=== PATIENT | female | born 1975 | race African-American/Black ===

== ENCOUNTER 2016-09-21 06:33 | Emergency (ER) | payer OTHER ==
[~2016-09-21] VITALS: Wt 72.4 kg
[~2016-09-21 06:33] MED LIST: FLUO60SO7 TOP; KENC1 TOP; LORA-441 PO
[2016-09-21] MEDS ORDERED: ALBU8.5H3 INH (08:03)
[2016-09-21] MEDS ORDERED: BENZ100C70 PO (08:03)
[2016-09-21] MEDS ORDERED: AZIT250T94 PO (08:03)
[2016-09-21] MEDS ORDERED: ACET500C5 PO (08:03)
--- NOTE | 2016-09-21 08:38 | ERD ---
ER Documentation Chief Complaint Date/Time DATE: 09/21/16 TIME: 08:35 Chief Complaint COUGH CONGESTION WITH SORE THRAOT FOR THE PAST FEW DAYS HPI 40-year-old female with no significant past medical history presents the ED complaining of cough, congestion, sore throat that started 3 days ago. States that she tried [id number] NyQuil which did not alleviate her symptoms. Denies any fever, chest pain, shortness of breath, abdominal pain, nausea, vomiting, diarrhea. Patient states that her last menses was 1 week ago. Denies any sick contacts. ROS All systems reviewed and are negative except as per history of present illness. Medications Home Meds Active Scripts Acetaminophen* (Tylophen*) 500 Mg Capsule, 1 CAP PO Q6H Y for PAIN AND OR ELEVATED TEMP, #20 CAP Prov:BILLIE GRAYSON PA-C 09/21/16 Albuterol Sulfate* (Proair HFA*) 8.5 Gm Hfa.aer.ad, 2 PUFF INH Q4, #1 INHALER Prov:BILLIE GRAYSON PA-C 09/21/16 Benzonatate* (Tessalon Perle*) 100 Mg Capsule, 100 MG PO Q8H Y for COUGH, #20 CAP Prov:BILLIE GRAYSON PA-C 09/21/16 Azithromycin* (Zithromax*) 250 Mg Tablet, 250 MG PO .ZPACK DIRECTED, #6 TAB TAKE 500 MG (2 TABS) THE FIRST DAY THEN 250 MG (1 TAB) DAYS 2-5 Prov:BILLIE GRAYSON PA-C 09/21/16 Triamcinolone Acetonide (Triamcinolone Acetonide) 0.1% - 15 Gm Cream.gm., 1 APPLIC TOP BID, #1 TUB Prov:ROSALBA RODRIGUEZ MD 01/17/16 Fluocinonide* (Fluocinonide* Soln) 0.05% - 60 Ml Solution, 1 APPLIC TOP DAILY for 10 Days, EA 1 Refill Prov:ROSALBA RODRIGUEZ MD 01/17/16 Lorazepam* (Ativan*) 0.5 Mg Tablet, 0.5 MG PO Q8H Y for ANXIETY, #10 TAB Prov:JORGE WATSON PA-C 03/29/15 Lorazepam* (Ativan*) 0.5 Mg Tablet, 0.5 MG PO Q8, #10 Prov:NINA BHAKTAA 12/23/14 Allergies Allergies: Coded Allergies: No Known Allergy (Unverified , 01/17/16) PMhx/Soc History of Surgery: No Anesthesia Reaction: No Hx Neurological Disorder: No Hx Respiratory Disorders: No Hx Cardiac Disorders: No Hx Psychiatric Problems: Yes (anxiety) Hx Miscellaneous Medical Probl: Yes (ECZEMA ) Hx Alcohol Use: No Hx Substance Use: No Hx Tobacco Use: No Smoking Status: Never smoker Physical Exam Vitals Vital Signs Date Time Temp Pulse Resp B/P Pulse Ox O2 Delivery O2 Flow Rate FiO2 09/21/16 06:46 97.8 80 21 115/69 98 Physical Exam Const: [id number], well-nourished. In no acute distress. Head: Atraumatic, normocephalic Eyes: Normal Conjunctiva without injection. No purulent discharge. PERRL. EOMI ENT: Normal external ear. Ear canal without erythema. Tympanic membrane pearly noriega without effusion or bulging. Nasal canal clear with normal turbinates. Moist oropharynx without tonsillar exudates. Non-erythematous pharynx. Uvula midline. No drooling. No trismus. Neck: Full range of motion. No meningismus. No cervical lymphadenopathy. Resp: Clear to auscultation bilaterally. No wheezing, rhonchi, rales, or crackles. No accessory muscle use. No retractions. Cardio: Regular rate and rhythm. No murmurs, rubs or gallops. Abd: Soft, non tender, non distended. Normal bowel sounds. No palpable masses. No rebound tenderness. No guarding. Skin: No petechiae or rashes Back: No midline tenderness. No CVA tenderness. Ext: No cyanosis, or edema. Neur: Awake and alert. Psych: Normal Mood and Affect Procedures/MDM This is a 40-year-old female with no significant past medical history presents to the ED complaining of dry cough, congestion, sore throat since 3 days ago. Patient is afebrile and nontoxic-appearing. Patient has normal vital signs. This patient presents to the ED with symptoms consistent with a viral acute upper respiratory infection. Patient reports that she has had a history of bronchitis. I instructed patient that if her symptoms do not improve within 1- 2 weeks, she can take the Zithromax. Patient is afebrile and has normal vital signs. Patient's physical exam include lungs which were clear to auscultation and a normal pulse oximetry. There is a low suspicion for pneumonia, pneumothorax, pulmonary embolism, epiglottitis, otitis media, otitis externa, viral/strep pharyngitis, sinusitis, peritonsillar abscess, mastoiditis, retropharyngeal abscess, meningitis, sepsis, acute abdomen or other emergent conditions. Discharge medications: Zithromax, Tylenol, Pro-air, Tessalon Perles Patient was instructed to return to the ED for any new or worsening symptoms. They should otherwise follow up with the primary care provider within 1-2 days. The patient's questions were answered at the time of discharge. Patient understood and agreed with discharge management. Departure Diagnosis: Primary Impression: Cough Additional Impression: Sore throat Condition: Stable Patient Instructions: Bronchitis, Antiobiotic Treatment (Adult) Referrals: [facility], [facility] YOU HAVE RECEIVED A MEDICAL SCREENING EXAM AND THE RESULTS INDICATE THAT YOU DO NOT HAVE A CONDITION THAT REQUIRES URGENT TREATMENT IN THE EMERGENCY DEPARTMENT. FURTHER EVALUATION AND TREATMENT OF YOUR CONDITION CAN WAIT UNTIL YOU ARE SEEN IN YOUR DOCTORS OFFICE WITHIN THE NEXT 1-2 DAYS. IT IS YOUR RESPONSIBILITY TO MAKE AN APPOINTMENT FOR FOLOW-UP CARE. IF YOU HAVE A PRIMARY DOCTOR --you should call your primary doctor and schedule an appointment IF YOU DO NOT HAVE A PRIMARY DOCTOR YOU CAN CALL OUR PHYSICIAN REFERRAL HOTLINE AT IF YOU CAN NOT AFFORD TO SEE A PHYSICIAN YOU CAN CHOSE FROM THE FOLLOWING [facility] CLINICS [facility] [address] [facility] [address] [facility] [address] [facility] [address] [facility] [address] [facility]. [facility]. [address] [facility]. [facility] YOU HAVE RECEIVED A MEDICAL SCREENING EXAM AND THE RESULTS INDICATE THAT YOU DO NOT HAVE A CONDITION THAT REQUIRES URGENT TREATMENT IN THE EMERGENCY DEPARTMENT. FURTHER EVALUATION AND TREATMENT OF YOUR CONDITION CAN WAIT UNTIL YOU ARE SEEN IN YOUR DOCTORS OFFICE WITHIN THE NEXT 1-2 DAYS. IT IS YOUR RESPONSIBILITY TO MAKE AN APPOINTMENT FOR FOLOW-UP CARE. IF YOU HAVE A PRIMARY DOCTOR --you should call your primary doctor and schedule and appointment IF YOU DO NOT HAVE A PRIMARY DOCTOR YOU CAN CALL OUR PHYSICIAN REFERRAL HOTLINE AT . IF YOU CAN NOT AFFORD TO SEE A PHYSICIAN YOU CAN CHOSE FROM THE FOLLOWING [facility] INSTITUTIONS: [facility] [address] [place] [address] [facility] [address] [place] [address] [facility] [address] [place] [address] [facility] URGENT CARE/SPECIALTIES Additional Instructions: FOLLOW UP WITH YOUR PRIMARY CARE PHYSICIAN TOMORROW.Return to this facility if you are not improving as expected. BILLIE GRAYSON PA-C Sep 21, 2016 08:38
== END 2016-09-21 08:10 | disposition home or self-care (01) ==
LOC: FTE 06:33
DX: R05 Cough (principal); J02.9 Acute pharyngitis, unspecified
CPT/HCPCS: 99284

== ENCOUNTER 2017-05-27 17:34 | Emergency (ER) | payer OTHER ==
[~2017-05-27] VITALS: Ht 172.7 cm; Wt 80.5 kg
[~2017-05-27 17:34] MED LIST changes: +ACET500C5 PO; +ALBU8.5H3 INH; +AZIT250T94 PO; +BENZ100C70 PO; -KENC1 TOP; +TRIA15CR55 TOP
[2017-05-27 17:37] VITALS: Ht 172.7 cm; Wt 80.5 kg
[2017-05-27] MEDS: LORAZEPAM 1 MG TAB PO ONE ×2 (18:03→18:07)
[2017-05-27] MEDS ORDERED: LORA-441 PO (18:16)
--- NOTE | 2017-05-27 18:22 | ERD ---
ER Documentation Chief Complaint Chief Complaint Complains of anxiety reaction today, HX of anxiety HPI 41-year-old female patient with a past medical history of anxiety presents to the ED complaining of feeling upset and stressed. Patient reports that her anxiety has been going on for the past 20 years. Reports that she has been taking her medications on and off. Reports that in the last few weeks, she has felt stressed at work. Denies any chest pain, shortness of breath, sore throat , fever, chills, nausea, vomiting, diarrhea, pain. She reports that when she feels upset and stressed, she will have thoughts about hurting herself however does not want to and does not have a plan. Denies any homicidal ideations. Denies any hallucinations or hearing voices. ROS All systems reviewed and are negative except as per history of present illness. Medications Home Meds Active Scripts Lorazepam* (Ativan*) 0.5 Mg Tablet, 0.5 MG PO Q8H Y for ANXIETY, #12 TAB Prov:BILLIE GRAYSON PA-C 05/27/17 Acetaminophen* (Tylophen*) 500 Mg Capsule, 1 CAP PO Q6H Y for PAIN AND OR ELEVATED TEMP, #20 CAP Prov:BILLIE GRAYSON PA-C 09/21/16 Albuterol Sulfate* (Proair HFA*) 8.5 Gm Hfa.aer.ad, 2 PUFF INH Q4, #1 INHALER Prov:BILLIE GRAYSON PA-C 09/21/16 Benzonatate* (Tessalon Perle*) 100 Mg Capsule, 100 MG PO Q8H Y for COUGH, #20 CAP Prov:BILLIE GRAYSON PA-C 09/21/16 Azithromycin* (Zithromax*) 250 Mg Tablet, 250 MG PO .ZPACK DIRECTED, #6 TAB TAKE 500 MG (2 TABS) THE FIRST DAY THEN 250 MG (1 TAB) DAYS 2-5 Prov:BILLIE GRAYSON PA-C 09/21/16 Triamcinolone Acetonide (Triamcinolone Acetonide) 0.1% - 15 Gm Cream.gm., 1 APPLIC TOP BID, #1 TUB Prov:ROSALBA RODRIGUEZ MD 01/17/16 Fluocinonide* (Fluocinonide* Soln) 0.05% - 60 Ml Solution, 1 APPLIC TOP DAILY for 10 Days, EA 1 Refill Prov:ROSALBA RODRIGUEZ MD 01/17/16 Lorazepam* (Ativan*) 0.5 Mg Tablet, 0.5 MG PO Q8H Y for ANXIETY, #10 TAB Prov:JORGE WATSON PA-C 03/29/15 Lorazepam* (Ativan*) 0.5 Mg Tablet, 0.5 MG PO Q8, #10 Prov:CHONINAA 12/23/14 Allergies Allergies: Coded Allergies: No Known Allergy (Unverified , 01/17/16) PMhx/Soc History of Surgery: No Anesthesia Reaction: No Hx Neurological Disorder: No Hx Respiratory Disorders: No Hx Cardiac Disorders: No Hx Psychiatric Problems: Yes (anxiety) Hx Miscellaneous Medical Probl: Yes (ECZEMA ) Hx Alcohol Use: No Hx Substance Use: No Hx Tobacco Use: No Smoking Status: Never smoker Physical Exam Vitals Vital Signs Date Time Temp Pulse Resp B/P Pulse Ox O2 Delivery O2 Flow Rate FiO2 05/27/17 17:37 97.5 102 20 123/81 96 Physical Exam Const: Vuw-vxz-zgxjnabmm, well-nourished. In no acute distress. Head: Atraumatic, normocephalic Eyes: Normal Conjunctiva without injection. No purulent discharge. PERRL. EOMI ENT: Normal external ear. Ear canal without erythema. Tympanic membrane pearly noriega without effusion or bulging. Nasal canal clear with normal turbinates. Moist oropharynx without tonsillar exudates. Non-erythematous pharynx. Uvula midline. No drooling. No trismus. Neck: Full range of motion. No meningismus. No cervical lymphadenopathy. Resp: Clear to auscultation bilaterally. No wheezing, rhonchi, rales, or crackles. No accessory muscle use. No retractions. Cardio: Regular rate and rhythm. No murmurs, rubs or gallops. Abd: Soft, non tender, non distended. Normal bowel sounds. No palpable masses. No rebound tenderness. No guarding. Skin: No petechiae or rashes Back: No midline tenderness. No CVA tenderness. Ext: No cyanosis, or edema. Neur: Awake and alert. Psych: Normal Mood and Affect. Results 24 hrs Current Medications Medications (Trade) Dose Ordered Sig/Lonny Route PRN Reason Start Time Stop Time Status Last Admin Dose Admin Lorazepam (Ativan) 1 mg ONCE ONCE PO 05/27/17 18:00 05/27/17 18:09 DC Procedures/MDM This is a 41-year-old female patient with a past medical history of anxiety presents to the ED complaining of feeling upset and stressed. Patient is afebrile and nontoxic-appearing. Denies any chest pain. This case was discussed with my supervising physician, Dr. Salazar who agreed with the management and discharge plan and stated that we can prescribe patient a short course of Ativan. Low suspicion for acute myocardial infarction, pneumothorax, pneumonia, cardiac tamponade, pulmonary embolism, pleural effusion, AAA, aortic dissection, Boerhaave's syndrome, cardiac dysrhythmias,meningitis, intracranial bleed, seizure, stroke, TIA or other emergent conditions. Patient does not have any active thoughts or plan of suicidal ideation. No homicidal ideation. No hallucinations or hearing voices. No evaluation for a psychiatric evaluation at this time. Discharge medications: Ativan Follow up with primary care physician in 1-2 days. Patient reports that she is going to follow up with a therapist. Instructed patient to return to the ED sooner for any worsening symptoms. Patient's questions were answered. Patient understood and agreed with discharge plan. Patient discharged stable. Departure Diagnosis: Primary Impression: Anxiety Condition: Stable Patient Instructions: Taking Medication Safely, Your Body's Response to Anxiety , Anxiety Reaction Referrals: ERAN INTERIANO MD (PCP) [facility] YOU HAVE RECEIVED A MEDICAL SCREENING EXAM AND THE RESULTS INDICATE THAT YOU DO NOT HAVE A CONDITION THAT REQUIRES URGENT TREATMENT IN THE EMERGENCY DEPARTMENT. FURTHER EVALUATION AND TREATMENT OF YOUR CONDITION CAN WAIT UNTIL YOU ARE SEEN IN YOUR DOCTORS OFFICE WITHIN THE NEXT 1-2 DAYS. IT IS YOUR RESPONSIBILITY TO MAKE AN APPOINTMENT FOR FOLOW-UP CARE. IF YOU HAVE A PRIMARY DOCTOR --you should call your primary doctor and schedule an appointment IF YOU DO NOT HAVE A PRIMARY DOCTOR YOU CAN CALL OUR PHYSICIAN REFERRAL HOTLINE AT IF YOU CAN NOT AFFORD TO SEE A PHYSICIAN YOU CAN CHOSE FROM THE FOLLOWING [facility] [address] [facility] [facility] [address] [facility] [facility] [address] [facility] [employer] [address] [facility] [facility] [address] [facility]. [employer] [address] [facility]. [facility] YOU HAVE RECEIVED A MEDICAL SCREENING EXAM AND THE RESULTS INDICATE THAT YOU DO NOT HAVE A CONDITION THAT REQUIRES URGENT TREATMENT IN THE EMERGENCY DEPARTMENT. FURTHER EVALUATION AND TREATMENT OF YOUR CONDITION CAN WAIT UNTIL YOU ARE SEEN IN YOUR DOCTORS OFFICE WITHIN THE NEXT 1-2 DAYS. IT IS YOUR RESPONSIBILITY TO MAKE AN APPOINTMENT FOR FOLOW-UP CARE. IF YOU HAVE A PRIMARY DOCTOR --you should call your primary doctor and schedule and appointment IF YOU DO NOT HAVE A PRIMARY DOCTOR YOU CAN CALL OUR PHYSICIAN REFERRAL HOTLINE AT . IF YOU CAN NOT AFFORD TO SEE A PHYSICIAN YOU CAN CHOSE FROM THE FOLLOWING [facility] INSTITUTIONS: [facility] [address] [place] [address] [facility] [address] [place], [place] [id number] [place] [address] [address] [place] [address] [facility] URGENT CARE/SPECIALTIES Additional Instructions: Call your primary care doctor TOMORROW for an appointment during the next 2-3 days.See the doctor sooner or return here if your condition worsens before your appointment time. BILLIE GRAYSON PA-C May 27, 2017 18:22
== END 2017-05-27 18:23 | disposition home or self-care (01) ==
LOC: FTE 17:34
DX: F41.9 Anxiety disorder, unspecified (principal)
CPT/HCPCS: Z7502; Z7610; 99283

== ENCOUNTER 2018-03-05 10:07 | Emergency (ER) | END 2018-03-05 11:30 | disposition home or self-care (01) ==